=== PATIENT | female | born 2000 | race Caucasian/White ===

== ENCOUNTER 2021-03-11 15:23 | Emergency (ER) | payer BC ==
[~2021-03-11] VITALS: Ht 160 cm; Wt 56.0 kg
--- OUTSIDE RECORDS SUMMARY | 2021-03-11 15:30 | XMS REPORT | Clinical Summary ---
Author Author [facility] Organization [facility] Address Unknown Phone Unavailable Care Team Providers Care Yoga Instructor Name Role Phone No, Pcp REVIEW RN PP Unavailable Allergies Comments Active Allergy Reactions Severity Noted Date Unsure, rash as a baby she thinks Penicillins Other (See 07/08/2017 Comments) Medications End Date Status Medication Sig Dispensed Refills Start Date Active etonogestreL (Nexplanon) by subdermal 0 68 mg impl route. Active fluconazole (DIFLUCAN) Take 1 tablet 2 tablet 0 0 150 MG tablet by mouth 0 every 3 days for a total of 2 doses Active Problems Not on file Immunizations Name Administration Dates Next Due Menactra Single Dose Vial 12/28/2017 PPD Test 08/07/2020, 10/03/2017 Social History Date Tobacco Use Types Packs/Day Years Used Never Smoker Smokeless Tobacco: Never Used Sex Assigned at Date Recorded Not on file Last Filed Vital Signs Reading Time Taken Comments Vital Sign 104/70 12/02/2019 9:43 AM CDT Blood Pressure 78 12/02/2019 9:43 AM CDT Pulse 37.2 C (98.9 F) 12/02/2019 9:43 AM CDT Temperature 18 12/02/2019 9:43 AM CDT Respiratory Rate 97% 12/02/2019 9:43 AM CDT Oxygen Saturation - - Inhaled Oxygen Concentration 54.4 kg (120 lb) 02/01/2019 4:12 PM CDT Weight 162.6 cm (5' 4") 02/01/2019 4:12 PM CDT Height 20.6 02/01/2019 4:12 PM CDT Body Mass Index Plan of Treatment Health Maintenance Due Date Last Done Comments Cervical Cancer: 2020 Screening Results Not on filefrom Last 3 Months Insurance Type Payer Benefit Subscriber ID Effective Phone Address Plan / Dates Group BCBS RONNIE BCBS [id number] 2016-P [facility] - NON O PLANS [id number] Care Teams Start Date End Date Yoga Instructor Relationship Specialty 02/01/19 No, Pcp, REVIEW RN PCP - General Family N/A Do not use Medicine
--- NOTE | 2021-03-11 15:40 | ED General ---
General Stated Complaint: TINGLY LIMBS,RAPID HEART,DEHYDRATION,ANXIETY Source of Information: Patient Exam Limitations: No Limitations History of Present Illness Date Seen by Provider: Mar 11, 2021 Time Seen by Provider: 15:38 Initial Comments To ER with rapid heart rate, anxiety, spasms and cramps and tingling in her hands bilaterally as well as tingling in her lips. This began while she was at home at rest. No history of this. She does occasionally use marijuana. She drinks some alcohol last night and spent most of the day at the pool and believes herself to be a little dehydrated. Timing/Duration: 1/2 Hour Severity: Moderate Associated Systoms: Denies Symptoms Allergies and Home Medications Allergies Coded Allergies: No Known Drug Allergies (Unverified , 03/11/21) Patient Home Medication List Home Medication List Reviewed: Yes Review of Systems Review of Systems Constitutional: see HPI EENTM: see HPI Respiratory: no symptoms reported Cardiovascular: no symptoms reported Genitourinary: no symptoms reported Musculoskeletal: no symptoms reported Skin: no symptoms reported Psychiatric/Neurological: No Symptoms Reported Hematologic/Lymphatic: No Symptoms Reported Immunological/Allergic: no symptoms reported Physical Exam Vital Signs Vital Signs - First Documented 03/11/21 15:30 Temp 36.0 Pulse 111 Resp 16 B/P (MAP) 124/94 (104) Pulse Ox 100 O2 Delivery Room Air Capillary Refill : Height, Weight, BMI Height: '" Weight: lbs. oz. kg; BMI Method: General Appearance: No Apparent Distress, WD/WN, Anxious Eyes: Bilateral Eye Normal Inspection, Bilateral Eye PERRL, Bilateral Eye EOMI Neck: Full Range of Motion, Normal Inspection Respiratory: No Accessory Muscle Use, No Respiratory Distress Cardiovascular: Normal Peripheral Pulses, Tachycardia Gastrointestinal: Normal Bowel Sounds, Non Tender, Soft Extremity: Normal Capillary Refill, Normal Inspection Neurologic/Psychiatric: Alert, Oriented x3 Skin: Normal Color, Warm/Dry Progress/Results/Core Measures Suspected Sepsis SIRS Temperature: Pulse: Respiratory Rate: Laboratory Tests 03/11/21 15:35: White Blood Count 10.6 Blood Pressure / Mean: Laboratory Tests 03/11/21 15:35: Creatinine 0.84, Platelet Count 371 Results/Orders Lab Results Laboratory Tests Test 03/11/21 15:35 Range/Units White Blood Count 10.6 4.3-11.0 10^3/uL Red Blood Count 4.32 3.80-5.11 10^6/uL Hemoglobin 13.5 11.5-16.0 g/dL Hematocrit 41 35-52 % Mean Corpuscular Volume 94 80-99 fL Mean Corpuscular Hemoglobin 31 25-34 pg Mean Corpuscular Hemoglobin Concent 33 32-36 g/dL Red Cell Distribution Width 11.9 10.0-14.5 % Platelet Count 371 130-400 10^3/uL Mean Platelet Volume 9.5 9.0-12.2 fL Immature Granulocyte % (Auto) 0 % Neutrophils (%) (Auto) 57 42-75 % Lymphocytes (%) (Auto) 35 12-44 % Monocytes (%) (Auto) 6 0-12 % Eosinophils (%) (Auto) 1 0-10 % Basophils (%) (Auto) 1 0-10 % Neutrophils # (Auto) 6.1 1.8-7.8 10^3/uL Lymphocytes # (Auto) 3.7 1.0-4.0 10^3/uL Monocytes # (Auto) 0.6 0.0-1.0 10^3/uL Eosinophils # (Auto) 0.1 0.0-0.3 10^3/uL Basophils # (Auto) 0.1 0.0-0.1 10^3/uL Immature Granulocyte # (Auto) 0.0 0.0-0.1 10^3/uL Sodium Level 139 135-145 MMOL/L Potassium Level 3.8 3.6-5.0 MMOL/L Chloride Level 107 98-107 MMOL/L Carbon Dioxide Level 16 L 21-32 MMOL/L Anion Gap 16 H 5-14 MMOL/L Blood Urea Nitrogen 10 7-18 MG/DL Creatinine 0.84 0.60-1.30 MG/DL Estimat Glomerular Filtration Rate 86 BUN/Creatinine Ratio 12 Glucose Level 147 H 70-105 MG/DL Calcium Level 9.6 8.5-10.1 MG/DL Serum Test, Qualitative NEGATIVE NEGATIVE My Orders Orders - KELSI VILLA APRN Lactated Ringers (Lr 1000 Ml Iv Solution (03/11/21 15:45) Alprazolam Tablet (Xanax Tablet) (03/11/21 15:45) Cbc With Automated Diff (03/11/21 15:37) Basic Metabolic Panel (03/11/21 15:37) Hcg,Qualitative Serum (03/11/21 15:37) Ed Iv/Invasive Line Start (03/11/21 15:37) Medications Given in ED Current Medications Medications Dose Ordered Sig/Goldie Route Start Time Stop Time Status Last Admin Dose Admin Alprazolam 0.25 mg ONCE ONCE PO 03/11/21 15:45 03/11/21 15:46 DC 03/11/21 15:44 0.25 MG Vital Signs/I&O 03/11/21 15:30 Temp 36.0 Pulse 111 Resp 16 B/P (MAP) 124/94 (104) Pulse Ox 100 O2 Delivery Room Air Capillary Refill : Departure Communication (Admissions) 1650-feeling much better. More relaxed. No tingling of her fingers or face. Her heart rate has fallen. Impression Primary Impression: Anxiety Additional Impression: Dehydration Disposition: 01 HOME, SELF-CARE Condition: Stable Departure-Patient Inst. Decision time for Depature: 15:40 Patient Instructions: Dehydration, Adult (DC) KELSI VILLA APRN Mar 11, 2021 15:40
[2021-03-11 15:44] LABS: BASOPHILS # (AUTO) 0.1 10^3/uL (0.0-0.1); BASOPHILS % (AUTO) 1 % (0-10); EOSINOPHILS # (AUTO) 0.1 10^3/uL (0.0-0.3); EOSINOPHILS % (AUTO) 1 % (0-10); HEMATOCRIT 41 % (35-52); HEMOGLOBIN 13.5 g/dL (11.5-16.0); LYMPHOCYTES # (AUTO) 3.7 10^3/uL (1.0-4.0); LYMPHOCYTES % (AUTO) 35 % (12-44); MEAN CORPUSCULAR HEMOGLOBIN 31 pg (25-34); MEAN CORPUSCULAR HGB CONC 33 g/dL (32-36); MEAN CORPUSCULAR VOLUME 94 fL (80-99); MEAN PLATELET VOLUME 9.5 fL (9.0-12.2); MONOCYTES # (AUTO) 0.6 10^3/uL (0.0-1.0); MONOCYTES % (AUTO) 6 % (0-12); NEUTROPHILS # (AUTO) 6.1 10^3/uL (1.8-7.8); NEUTROPHILS % (AUTO) 57 % (42-75); PLATELET COUNT 371 10^3/uL (130-400); WHITE BLOOD COUNT 10.6 10^3/uL (4.3-11.0)
[2021-03-11] MEDS ORDERED: LACTATED RINGERS 1,000 ML IV SCH (15:45)
[2021-03-11] MEDS ORDERED: ALPRAZolam 0.25 MG (XANAX) TAB PO ONE (15:45)
[2021-03-11 15:58] LABS: POTASSIUM 3.8 MMOL/L (3.6-5.0)
[2021-03-11 15:59] LABS: CALCIUM 9.6 MG/DL (8.5-10.1)
[2021-03-11 16:03] LABS: CREATININE SERUM 0.84 MG/DL (0.60-1.30)
[2021-03-11 16:50] VITALS: BP 123/85
== END 2021-03-11 16:50 | disposition home or self-care (01) ==
LOC: ER 15:28
DX: F41.9 Anxiety disorder, unspecified (principal); E86.0 Dehydration
CPT/HCPCS: 36415; 80048; 84703; 85025